=== PATIENT | male | born 1960 | race Caucasian/White ===

== ENCOUNTER 2023-08-29 07:45 | Outpatient (CLI) | payer BC | END 2023-08-29 23:59 | disposition home or self-care (01) | LOC: MRI 07:45 | PROVIDERS: ATTEND Chiropractor | DX: M47.22 Other spondylosis with radiculopathy, cervical region (principal); M48.02 Spinal stenosis, cervical region; M50.123 Cervical disc disorder at C6-C7 level with radiculopathy; M99.01 Segmental and somatic dysfunction of cervical region; M60.9 Myositis, unspecified; M99.02 Segmental and somatic dysfunction of thoracic region; M99.03 Segmental and somatic dysfunction of lumbar region; M99.04 Segmental and somatic dysfunction of sacral region; M99.05 Segmental and somatic dysfunction of pelvic region | CPT/HCPCS: 72141 ==

== ENCOUNTER 2023-10-07 13:36 | Emergency (ER) | payer BC | END 2023-10-07 13:51 | disposition left against medical advice (07) | LOC: ER 13:36 | DX: M79.603 Pain in arm, unspecified (principal); Z53.21 Procedure and treatment not carried out due to patient leaving prior to being seen by health care provider ==

== ENCOUNTER 2025-01-08 14:14 | Inpatient (IN) | payer BC ==
[~2025-01-08] VITALS: Ht 182.9 cm; Wt 84.1 kg
[2025-01-08 14:51] LABS: MEAN PLATELET VOLUME 7.6 FL (7.4-10.4); RED CELL DISTRIBUTION WIDTH 16.8 % (11.5-14.5)
[2025-01-08 14:52] LABS: LEUKOCYTE ESTERASE ,URINE NEGATIVE (Neg); NITRITES, URINE NEGATIVE (Neg); OCCULT BLOOD,URINE TRACE-INTACT (Neg)
[2025-01-08 14:55] LABS: UA COLLECTION TYPE CLN CATCH MIDSTREAM
[2025-01-08 14:56] LABS: MUCUS STRANDS NONE SEEN /LPF (Neg); SQUAMOUS EPITHELIAL CELL,UR NONE SEEN /LPF (FEW)
[2025-01-08 15:07] LABS: CREATININE 0.80 MG/DL (0.60-1.10); TOTAL CARBON DIOXIDE 28.5 MMOL/L (24-32); eCRCL 102 ML/MIN; eGFR > 90 ML/MIN
[2025-01-08] MEDS: normal saline 1000ML IV soln IVB ONE (15:26)
[2025-01-08] MEDS: morphine 4 MG/ML inj SYRINge IV ONE ×2 (15:27→17:09)
--- NOTE | 2025-01-08 16:06 | Physician Documentation ---
History of Present Illness ~ Chief Complaint: Flank Pain Stated Complaint: KIDNEY PAIN Time Seen by MD: 15:01 OK to notify your PCP?: Yes Source: patient Mode of Arrival: POV Exam Limitations: no limitations HPI Patient presents with his secondary to lower back pain starting about one week ago radiating to the groin. Acutely worse last night. Pain located in his lower back radiating to the groin. When he got up last night he had difficulty and then experienced headache in the base of his neck. History of polymyalgia rheumatica on prednisone and Meniere's disease. He has also had a C-spine fusion. Complaining of nausea, no vomiting, no diarrhea. No fevers or chills. States has history of kidney stone and this feels similar to previous. Medication Reconciliation Allergies: Coded Allergies: No Known Allergies (Unverified , 01/08/25) Scheduled Prednisone* (Prednisone*), 3 TAB PO DAILY, (Reported) [Betahistine], 16 MG PO TID, (Reported) Past Medical History Past Medical History: *MEDICAID BILLER* (Polymyalgia rheumatica, Meniere's disease), Kidney Stones Past Surgical History: other (c-spine) Smoking Status: Never smoker Alcohol Use: None Drug Use: none Lives with: Spouse Lives In: Home Review of Systems All Other Systems at this time: Reviewed and Negative ROS As stated above in the HPI, otherwise all systems are reviewed and negative. Physical Exam Vital Signs: RN Vital Signs have been reviewed: Yes, Temperature: 97.3, Source: Oral, Heart Rate: 59, Respiratory Rate: 18, BP: 161/92, Pulse Oximetry: 100, Weight: 84.090 Oxygen Flow Rate: 0 Pulse Oximetry Reflects: adequate oxygenation Physical Exam General: Awake, alert, oriented. No apparent distress Respiratory: Lungs are clear to auscultation bilaterally. No respiratory distress. Chest: Normal shape and size. No accessory muscle use. Cardiovascular: Regular rate and rhythm. S1-S2. No murmur, gallop, rub. Gastrointestinal: Abdomen is soft. Nontender to palpation. Bowel sounds present. Extremities: No lower extremity edema, cyanosis or clubbing. Neurologic: Alert and oriented x4. Moving all extremities. Patellar DTRs plus two. Back: There is no CVA tenderness on exam. Pain with palpation to the left buttock area. Psychiatric: Normal mood and affect. Skin: Normal color. Warm and dry. Progress Progress Note 175: Patient had continued to complain of pain in the left gluteal area radiating to his groin on the left. Was given 4 mg addition of morphine. Continues to have pain. CT results were reviewed with him. States that two days ago he was doing some heavy lifting. Pain worse with movement. Has a headache posterior skull as well that is still present. We will give Toradol and Flexeril. 1906: Patient unable to stand. Continued pain in the left gluteal pain. Discussed with sup physician. Recommended IV muscle relaxer, therefore order for Valium. POC reviewed with pt and . At this time given no acute neurologic emergency. Signed out to supervising physician, Dr. Lao. Results/Orders Results/Orders Orders - EDITH BERNAL LICENSED SALES ASSISTANT Ct Abdomen Pelvis (01/08/25 16:19) * Bladder Scan / Post Residual (01/08/25 17:32) Completed Orders - EDITH BERNAL LICENSED SALES ASSISTANT Ct Abdomen Pelvis (01/08/25 16:19) Normal Saline 1000ml (0.9% Sodium Chlori (01/08/25 15:10) Morphine 4mg/Ml Inj. (Morphine Inj.) (01/08/25 15:10) Morphine 4mg/Ml Inj. (Morphine Inj.) (01/08/25 17:05) Ketorolac Trometh 15mg/Ml Vial (Toradol (01/08/25 17:55) Cyclobenzaprine Tablet (Flexeril Tablet) (01/08/25 17:55) Diazepam Inj (Valium Inj) (01/08/25 19:05) Medications Received in ER Medications (Trade) Dose Ordered Sig/Elo Route PRN Reason Start Time Stop Time Status Last Admin Dose Admin (morphine inj.) 2 mg ONCE ONCE IV 01/08/25 15:10 01/08/25 15:14 DC 01/08/25 15:27 2 MG (0.9% sodium chloride (NS) 1000ml IV soln) 1,000 ml ONCE ONCE IVB 01/08/25 15:10 01/08/25 15:14 DC 01/08/25 15:26 1,000 ML (morphine inj.) 4 mg ONCE ONCE IV 01/08/25 17:05 01/08/25 17:13 DC 01/08/25 17:09 4 MG (Toradol injection) 15 mg ONCE ONCE IV 01/08/25 17:55 01/08/25 17:56 DC 01/08/25 18:09 15 MG (Flexeril tablet) 10 mg ONCE ONCE PO 01/08/25 17:55 01/08/25 17:56 DC 01/08/25 18:08 10 MG (Valium inj) 5 mg ONCE ONCE IV 01/08/25 19:05 01/08/25 19:06 DC 01/08/25 19:12 5 MG Vital Signs 01/08/25 01/08/25 01/08/25 01/08/25 14:19 14:49 16:26 18:06 Temp 97.3 Pulse 59 57 50 Resp 18 19 20 B/P (MAP) 161/92 138/84 (102) 131/74 (93) Pulse Ox 100 99 97 O2 Flow Rate 0 0 0 01/08/25 01/08/25 01/08/25 01/08/25 18:36 18:45 19:12 19:50 Pulse 53 43 Resp 16 16 16 13 B/P (MAP) 131/74 (93) 141/75 (97) Pulse Ox 100 99 O2 Flow Rate 0 0 01/08/25 20:09 Resp 14 Laboratory Tests Test 01/08/25 14:31 01/08/25 14:45 Urine Specimen Description Cln catch midstream Urine Color Yellow Urine Clarity Clear Urine pH 6.5 Urine Specific [place] 1.010 Urine Protein Negative Urine Glucose (UA) Negative Urine Ketones Negative Urine Occult Blood Trace-intact Urine Nitrite Negative Urine Bilirubin Negative Urine Urobilinogen 0.2 Urine Leukocyte Esterase Negative Urine RBC 3-10 Urine WBC None seen Urine Squamous Epithelial Cells None seen Urine Bacteria None seen Urine Mucus None seen Urine Culture Indicated Not ind Volume Urine Centrifuged 10 ml Urine Comment White Blood Count 7.5 Red Blood Count 5.18 Hemoglobin 15.4 Hematocrit 45.8 Mean Corpuscular Volume 88.5 Mean Corpuscular Hemoglobin 29.7 Mean Corpuscular Hemoglobin Concent 33.5 Red Cell Distribution Width 16.8 H Platelet Count 262 Mean Platelet Volume 7.6 Neutrophils (%) (Auto) 78.9 H Lymphocytes (%) (Auto) 15.0 L Monocytes (%) (Auto) 4.6 Eosinophils (%) (Auto) 1.0 Basophils (%) (Auto) 0.5 Neutrophils # (Auto) 5.9 Lymphocytes # (Auto) 1.1 Monocytes # (Auto) 0.3 Eosinophils # (Auto) 0.1 Basophils # (Auto) 0.0 CBC Comment Sodium Level 137 Potassium Level 4.2 Chloride Level 105 Carbon Dioxide Level 28.5 Anion Gap 4 L Blood Urea Nitrogen 13 Creatinine 0.80 Estimated GFR/1.73 m2 > 90 BUN/Creatinine Ratio 16.3 Glucose Level 124 H Calcium Level 8.6 Total Bilirubin 0.6 Aspartate Amino Transf (AST/SGOT) 17 Alanine Aminotransferase (ALT/SGPT) 26 Alkaline Phosphatase 74 Total Creatine Kinase 80 Total Protein 7.6 Albumin 3.8 Globulin 3.8 Albumin/Globulin Ratio 1.0 L Lipase 26 Chemistry Comments Medical Decision Making Findings Patient initially presented with c/o flank pain on the left radiating to the groin. Concern for kidney stone. Has hx of a kidney stone many years ago. Underwent CT to r/o stone. There was a right stone in the Nonobstructive right renal caliceal stone that is non-obstructive. There is no hydronephrosis. There was noted to have bladder distention. Was able to urinate. Nursing did post residual void 450 mL. His pain is localized to the left gluteal area with radiation to the groin. Given post residual void and unable to ambulate needs MRI to r/o neruo condition such as cauda equina or other neurology condition. Discussed with Dr. Lao. Recommends admit for MRI. His pain is more located in the left buttock. He was unable to ambulate 2/2 his pain. He received a total of 6 mg of morphine, Toradol and Flexeril with the continued pain and unable to ambulate. Therefore given Valium. Has continued pain. therefore, admited as inpatient for further eval. The case was discussed with the attending physician, Shilo. The plan of care, diagnostic evaluation and medical decision making were discussed. The attending physician was available for consultation, where the diagnostic findings as well as the eventual disposition. Case signed out to residents service. Departure Time of Disposition: 19:55 Disposition: 09 ADMITTED INPATIENT Admission Level of Care: Neuro Impression: Primary Impression: Renal stone Additional Impressions: Lower back pain Qualified Codes: M54.50 - Low back pain, unspecified Weakness Urinary retention Condition: Guarded Referrals: NO PRIMARY CARE PROVIDER (PCP) Signature Scribe Signature: No scribe Attestation: The note accurately reflects work and decisions made by me.Edith Hernandez NP 01/08/25 20:04 This note was created with the assistance of voice recognition software whereby errors in grammar, syntax, and/or spelling may have occurred despite active proofreading efforts by the author. Please do not hesitate to contact the provider for clarification or for questions regarding the content of this document. EDITH BERNAL NP Jan 08, 2025 16:06
--- NOTE | 2025-01-08 17:12 | RADIOLOGY REPORT ---
EXAM: CT CT ABDOMEN PELVIS HISTORY: pelvic pain hx of kidney stone. r/o stone TECHNIQUE: Volumetric multidetector CT images of the abdomen and pelvis were obtained after the administration of intravenous contrast. All CT scans at this facility use dose modulation, iterative reconstruction, and/or weight based dosing when appropriate to reduce radiation dose to as low as reasonably achievable. COMPARISON: None FINDINGS: [LOWER CHEST]: Inconspicuous subpleural predominant ground-glass in the right lower lobe. Coronary artery calcifications. Small indeterminate hypoattenuating possible cyst measuring 2.8 x 1.8 cm. Differential for pericardial cyst [LIVER]: Normal hepatic size without suspicious focal lesion. [GALLBLADDER AND BILIARY TREE]: No cholelithiasis. [SPLEEN]: Unremarkable. [PANCREAS]: Unremarkable. [ADRENAL GLANDS]: Unremarkable [KIDNEYS]: No hydronephrosis. Large nonobstructive right renal caliceal stone, 10 mm. No distal ureteral stone. No suspicious focal lesion. [BLADDER]: Bladder distention [REPRODUCTIVE ORGANS]: Mild prostatomegaly [BOWEL/MESENTERY]: Stomach is normal. No CT evidence of bowel obstruction. mild distal descending and proximal sigmoid colonic diverticulosis . [ASCITES]: Absent [LYMPHADENOPATHY]: No pathologically enlarged lymph nodes by CT size criteria [VASCULATURE]: No aneurysmal dilatation. [ABDOMINAL WALL]: Infiltration along bilateral inguinal canals [MUSCULOSKELETAL]: No acute fracture or aggressive focal osseous lesion. Multifocal degenerative change of the visualized spine. possible prior avulsive injury along the origin of the right gluteus medius muscle belly along the right iliac wing IMPRESSION: 1. No CT evidence of an acute abdominal/pelvic process. 2. Nonobstructive right renal caliceal stone. 3. Mild prostatomegaly with bladder distention correlate for outlet obstruction versus urinary retention 4. Mild distal descending and proximal sigmoid colonic diverticulosis.
[2025-01-08] MEDS: ketorolac trometh 15mg/ml vial 15 MG/ML ML IV ONE (18:09)
[2025-01-08] MEDS: diazepam inj 5 MG/ML inj. IV ONE (19:12)
[2025-01-08] MEDS ORDERED: BETAHISTINE PO (20:08)
[2025-01-08] MEDS ORDERED: PRED5TAB PO (20:08)
[2025-01-08] MEDS ORDERED: magnesium sulf-water 4G/100mL 100 ML IV PRN (20:20)
[2025-01-08] MEDS ORDERED: magnesium sulf-water 2g/50mL 50 ML IV PRN (20:20)
[2025-01-08] MEDS ORDERED: magnesium Cl slow-release 64mg tablet PO PRN (20:20)
[2025-01-08] MEDS ORDERED: potassium Cl 40MEQ/1/2NS 520ml 520 ML IV PRN (20:20)
[2025-01-08] MEDS ORDERED: mag hydrox/Alum hydrox/simeth 30ml oral suspension PO PRN (20:20)
[2025-01-08] MEDS ORDERED: potassium Cl 20 mEq SR tablet PO PRN ×2 (20:20)
[2025-01-08] MEDS ORDERED: magnesium hydroxide 30ml (MOM) UD suspension PO PRN (20:20)
--- NOTE | 2025-01-08 21:14 | HISTORY AND PHYSICAL-Residence ---
History & Physical Providers to CC Resident Creating Document: CHAS TEJEDA, RES ~ History of Present Illness Reason for Admit\Complaint: gluteal pain History of Present Illness 64 years old male with past medical history of polymyalgia rheumatic and Meniere's disease comes to ED with severe 10/10 pain in left gluteal region, which is sharp and radiating to back and left groin the pain increases when he stands or moves around in the bed, and decreased when he stays still. Patient reported having mild back pain since 1 week, last he lifted a heavy box after which patient condition got exacerbated to a point he has unable to walk due to pain. Patient denies any bowel and bladder incontinence, Denies any loss of sensation in gluteal region The patient currently reports 5/10 pain. Patient mentioned having polymyalgia rheumatica for which he takes prednisone 10 mg daily Patient denies any hematuria, dysuria, oliguria but in ED his postvoid residual urine volume is 450 mL Patient reports headache but denies any fever, chest, palpitation, dizziness, any motor or sensory defect in extremities. Patient has a history of renal calculi which was treated in 10 years ago In ED given Valium, cyclobenzaprine, ketorolac, morphine because Patient unable to stand. Continued pain in the left gluteal pain Allergies: Coded Allergies: No Known Allergies (Unverified , 01/08/25) Home Medications Home Medications Active Reported [Betahistine] 16 Mg PO TID Prednisone* (Prednisone) 5 Mg Tablet 3 Tab PO DAILY Past Medical History Past Medical History Polymyalgia rheumatica Meniere's disease Past Surgical History Surgical History Comment Right meniscal tear surgery Biceps tendon repair Lower back surgery C4-C5 C6 fusion in July 2024 Past Social History Social History Comment Patient lives in his home He is able to ambulate in house without any assistance He smoked 1-2 cigars daily since 10 years He drinks 1-2 pints of beer daily He he does not smoke marijuana, he is not a drug user His PCP- [place] (ROBERT) Alcohol Use: None Drug Use: None Lives with: Spouse Lives In: Home ROS All Other Systems: Reviewed and Negative ROS Constitutional: No fever, chills, dizziness, weakness, Eyes: No pain, erythema, discharge, blurring of vision ENT: No sore throat, epistaxis, tinnitus Cardiovascular: No chest pain, No current palpitations, syncope, lower extremity edema, paroxysmal nocturnal dyspnea Respiratory: No shortness of breath , No cough, hemoptysis Gastrointestinal: No decrease appetite , No Nausea, vomiting,diarrhea and abdominal pain. Genitourinary: No frequency,urgency,No nocturia, hematuria or dysuria Musculoskeletal: Patient report 10/10 pain in left gluteal region which radiates to back and groin Integumentary: No change in skin, hair, nails. No swelling, bruising, abrasions Neurologic: patient didnot report any symptoms Psychiatric: No delusions, loss of interest in normal activity or change in sleep pattern, hallucinations, suicidal ideations Endocrine: No fatigue, weakness, polydipsia, polyuria, change in appetite, heat or cold intolerance, sweating, dry skin Hematological: No bleeding, petechiae, noted some bruises on left hand Allergies: No asthma or urticaria Exam Vitals: Vital Signs Date Time Temp Pulse Resp B/P (MAP) Pulse Ox O2 Delivery O2 Flow Rate FiO2 01/08/25 20:30 54 15 140/79 (99) 100 0 01/08/25 14:19 97.3 General: Patient is,alert, orientedx4 , answering questions with normal speech HEENT: Normocephalic and atraumatic, Oral and nasal mucosa is moist. No visible head injuries Neck: Trachea is in midline. No masses or JVD Chest: Normal air movement bilaterally , Bilateral normal breath sounds. No crackles, rhonchi or wheezes Cardiovascular: Regular rate and regular rhythm. S1-S2 normal. No rubs or murmurs Abdomen: Patient presented with left gluteal pain radiates to back and groin, patient did not report any changes in pain when palpating the area Non distented ,Normoactive bowel sounds Extremities: No cyanosis, clubbing or edema, No deformities, peripheral pulses 2+ WET WASH ASSEMBLER: Patient is alert , awake, speech is clear CN II-XII - intact Normal Tone and Bulk in all extremities Sensation is intact in all extremities Co-ordination is intact Skin: warn and dry Diagnostic Data Last Recorded Lab Results: 01/08/25 1445 01/08/25 1445 Advance Care Planning Advanced Care plannin - 30 Minutes Additional Plan 64 years old male with past medical history polymyalgia rheumatica and Meniere's disease he is currently evaluated for abdominal pain Severe radicular pain Patient presents with 10/10 left gluteal pain that radiates to back and groin and patient is unable to walk due to pain after lifting heavy object Differential include Lumbosacral radiculopathy Lumbar strain Obstructing renal calculi ruled out BP-140/79, Pr-54, SpO2-100 H&H-15.4/45.8, WBC-7.5 UA-negative Lipase-26 Na-137, K-4.2, BUN 13, creatinine-0.80, EGFR more than 90, BUN:Cr-16.3 CT: No CT evidence of an acute abdominal/pelvic process. Nonobstructive right renal caliceal stone.Mild prostatomegaly with bladder distention correlate for outlet obstruction versus urinary retention.Mild distal descending and proximal sigmoid colonic diverticulosis Plan Patient was given 1 dose of cyclobenzaprine, Valium, morphine in the ED Continue on cyclobenzaprine 10 mg p.o. daily Pain control with ketorolac/ morphine p.r.n. Started gabapentin 300 mg p.o. daily Follow-up with PSA Follow-up with ESR/CRP/procalcitonin/MG follow-up with MRI of lumbar spine Polymyalgia rheumatica Patient has a history of polymyalgia rheumatica for which she take home med prednisone 5 mg 3 tablets p.o. daily Plan Continue home med Meniere's disease Patient has a history of Meniere's disease for which he takes betahistine 16 mg p.o. TID Plan Given 1 dose of betahistidine Continue home med 16 mg p.o. TID Code Status: Full DVT prophylaxis: Lovenox Analgesia/Sedation: Morphine/Tylenol Nutrition: Regular diet PT: ordered Disposition: Patient will be monitored in ortho with telemetry, follow up with MRI of lumbar spine Chas Tejeda PGY1-Internal Medicine Resident agree with care and plan admit to medicine Date of Service: Jan 08, 2025 Billing Provider: JANELLE SYLVESTER MD, SATISH, RES Jan 08, 2025 21:14 JANELLE SYLVESTER MD Jan 09, 2025 00:39
[2025-01-08] MEDS: BETAHISTINE 16 MG PO SCH (21:57)
[2025-01-08] MEDS: ondansetron/PF 4mg/2ml inj IV PRN (22:15)
[2025-01-08] MEDS: morphine 4 MG/ML inj SYRINge IV PRN (22:16)
[2025-01-08 22:34] LABS: CHOL/HDL RATIO 3.5 (0.00-4.99); LDL CHOLESTEROL 135 MG/DL (50-100)
[2025-01-09] MEDS ORDERED: ketorolac trometh 15mg/ml vial 15 MG/ML ML IM PRN ×2 (00:50→00:58)
[2025-01-09] MEDS: morphine 4 MG/ML inj SYRINge IV PRN (04:07)
[2025-01-09] MEDS: K and/or MAG REPLACEMENT MC SCH (07:43)
[2025-01-09] MEDS: docusate sod 100mg capsule PO SCH (07:55)
[2025-01-09 08:00] LABS: MEAN PLATELET VOLUME 7.5 FL (7.4-10.4); RED CELL DISTRIBUTION WIDTH 16.6 % (11.5-14.5)
[2025-01-09 08:13] VITALS: BP 171/85; PULSE 55; RESP 14; TEMP 97.6; O2SAT 99
[2025-01-09 08:55] LABS: CREATININE 0.75 MG/DL (0.60-1.10); TOTAL CARBON DIOXIDE 25.3 MMOL/L (24-32); eCRCL 109 ML/MIN; eGFR > 90 ML/MIN
[2025-01-09 10:00] VITALS: BP 150/91; PULSE 55; RESP 18; TEMP 98.5; O2SAT 97
[2025-01-09] MEDS: ketorolac trometh 15mg/ml vial 15 MG/ML ML IV PRN (10:54)
[2025-01-09] MEDS: diazepam inj 5 MG/ML inj. IV ONE (15:45)
--- NOTE | 2025-01-09 17:43 | RADIOLOGY REPORT ---
EXAM: MR MRI LUMBAR SPINE INDICATION: cauda equina TECHNIQUE: Multiplanar, multisequence MR images of the lumbar spine were obtained without the administration of IV contrast. COMPARISON: None FINDINGS: [ANATOMY]: Five lumbar-type vertebral bodies are present. The most inferior well-formed disc space will be referred to as L5-S1 for purposes of numbering in this report. [VERTEBRAL BODIES]: The vertebral bodies are normal in height, alignment, and marrow signal. [SPINAL CANAL]: The conus medullaris is normal in signal and morphology, terminating at the L1-L2 level. Multilevel effacement lateral recesses primarily secondary to facet arthropathy and superimposed disc bulges at L2-3, L3-4 [FACETS]: [id number] bilateral multilevel facet arthropathy [OTHER]: Benign cysts of the left kidney. LEVEL BY LEVEL DISCUSSION: [T12-L1]: Unremarkable. [L1-L2]: Minimal posterior epidural lipomatosis. Trace circumferential disc bulge with 2-3 mm bilateral inferior foraminal extension mild bilateral facet arthropathy. Fuqt-xn-yslksjce left and mild right foraminal narrowing [L2-L3]: Broad-based posterior disc protrusion measuring 3 mm. Mild bilateral facet arthropathy, [id number]-left. Moderate to severe right and mild to moderate left foraminal narrowing [L3-L4]: Effacement of the lateral recesses trace circumferential disc bulge. 3 mm posterior extension. Facet arthropathy. Moderate to severe bilateral foraminal narrowing [L4-L5]: 2-3 mm bilateral inferior foraminal protrusions. Mild left facet arthropathy. Severe left and mild right foraminal narrowing. [L5-S1]: Unremarkable. IMPRESSION: 1. No acute fracture or subluxation. 2. No significant central canal or foraminal narrowing.
[2025-01-09 18:00] VITALS: BP 124/78; PULSE 59; RESP 16; TEMP 99.7; O2SAT 98
[2025-01-09] MEDS: nortriptyline 10mg capsule PO SCH (20:24)
[2025-01-09] MEDS: enoxaparin 40mg/0.4ml syringe SQ SCH (20:29)
--- NOTE | 2025-01-09 21:47 | PROGRESS NOTE ---
Daily Progress Note Providers to CC ~ Antibiotic Timeout Antibiotic Ordered?: Yes Subjective The patient continues to have severe left gluteal pain starting from his low- back he does have mild hair loss in the lower extremities as well distally. The patient is on tizanidine as needed and I added low-dose 10 mg of nortriptyline at night Objective Vital Signs Date Time Temp Pulse Resp B/P (MAP) Pulse Ox O2 Delivery O2 Flow Rate FiO2 01/09/25 18:30 56 01/09/25 18:00 99.7 16 124/78 (93) 98 Room Air 01/09/25 09:55 0.0 Result Diagram: 01/09/25 0736 01/09/25 0736 Gen. No acute distress alert and oriented 4 Lungs clear to ascultation bilaterally, no wheezes rales or rhonchi appreciated Heart normal sinus rhythm no murmurs rubs or clicks noted Abdomen soft nontender bowel sounds are normoactive Lower extremities no clubbing cyanosis, nor edema appreciated bilaterally Problem\Assessment\Plan Problems/Diagnosis: (1) Lower back pain # deep left gluteal pain- MRI of the lumbar spine demonstrated the following findings: [T12-L1]: Unremarkable. [L1-L2]: Minimal posterior epidural lipomatosis. Trace circumferential disc bulge with 2-3 mm bilateral inferior foraminal extension mild bilateral facet arthropathy. [id number]-[id number] left and mild right foraminal narrowing [L2-L3]: Broad-based posterior disc protrusion measuring 3 mm. Mild bilateral facet arthropathy, yhizl-flnqvtu-nrdu-left. Moderate to severe right and mild to moderate left foraminal narrowing [L3-L4]: Effacement of the lateral recesses trace circumferential disc bulge. 3 mm posterior extension. Facet arthropathy. Moderate to severe bilateral foraminal narrowing [L4-L5]: 2-3 mm bilateral inferior foraminal protrusions. Mild left facet arthropathy. Severe left and mild right foraminal narrowing. [L5-S1]: Unremarkable. Possible cause of the patient's deep gluteal pain however this burning sensation can also be secondary to peripheral artery disease- has a ordered a CTA of the abdomen with lower extremity runoff and a arterial ultrasound with ABIs # polymyalgia rheumatica His you home prednisone dose # Meniere's disease Continue beta histamine as needed Date of Service: Jan 09, 2025 Billing Provider: ROBACK,AMELIA T DO Common Visit Codes: 62245-[id number] INP/OBS CARE(HIGH) Problem Qualifiers (1) Lower back pain: Qualified Codes: M54.50 - Low back pain, unspecified AMELIA MCKEON DO Jan 09, 2025 21:47
[2025-01-09 22:00] VITALS: BP 118/77; PULSE 58; RESP 16; TEMP 97.8; O2SAT 94
[2025-01-10 05:44] LABS: MEAN PLATELET VOLUME 7.1 FL (7.4-10.4); RED CELL DISTRIBUTION WIDTH 16.6 % (11.5-14.5)
[2025-01-10 06:00] VITALS: BP 109/79; PULSE 55; RESP 18; TEMP 97.4; O2SAT 99
[2025-01-10 06:05] LABS: CREATININE 0.93 MG/DL (0.60-1.10); TOTAL CARBON DIOXIDE 26.8 MMOL/L (24-32); eCRCL 88 ML/MIN; eGFR 82 ML/MIN
[2025-01-10] MEDS ORDERED: iohexol 350 MG/ML 50ML vial IV ONE (09:22)
[2025-01-10 10:00] VITALS: BP 115/76; PULSE 56; RESP 16; TEMP 98.3; O2SAT 95
--- NOTE | 2025-01-10 10:03 | VASCULAR REPORT ---
Ankle Brachial Index - Single Level Date: 01/10/2025 08:17 AM Clinical History: Bilateral lower extremity pain Comparison: VASC VL ARTERIAL on DOS: 01/10/25, CT CTA ABDOMEN LOWER EXTR RUNOFF on DOS: 01/09/25 Indeations Bilateral lower extremity pain Pressures/Indices Right CARLOS Left AB Brachial IVmmHg Brachial 136mmHg Ankle(PT) 158mmHg Ankle(PT) 168mmHg Ankle(DP) 162mmHg Ankle(DP) 168mmHg CONCLUSION 2. Right ankle-brachial index: 1.19, suggesting no disease at rest. 3. Left ankle-brachial index: 1.23, suggesting no disease at rest. 4. Unable to calculate right brachial pressure due to IV in the right upper extremity.
--- NOTE | 2025-01-10 10:05 | VASCULAR REPORT ---
BILATERAL Lower Extremity Arterial Duplex Date: 01/10/2025 07:57 AM Clinical History: Lower extremity pain Comparison: VASC VL CARLOS on DOS: 01/10/25, CT CTA ABDOMEN LOWER EXTR RUNOFF on DOS: 01/09/25 Technique: Duplex Doppler evaluation including color Doppler and spectral/pulsed waveform analysis of the lower extremity arteries was performed. VELOCITY AND DOPPLER WAVEFORM ANALYSIS RIGHT cm/se Waveform Severity LEFT cm/se Waveform Severity c c dCFA 94.3 Multiphasic dCFA 88.7 Multiphasic Prof Fem 54.7 Multiphasic Prof Fem 47.9 Multiphasic Art. Art Fem Art 101.5 Multiphasic Fem Art 129.9 Multiphasic Prox. Prox. Fem Art 91.9 Multiphasic Fem Art 94.8 Multiphasic Mid Mid. Fem Art 87.9 Multiphasic Fem Art 69.0 Multiphasic Dist. Dist. Pop Art(AK) 52.4 Multiphasic Pop Art(AK) 59.2 Multiphasic Pop Art(BK) 75.6 Multiphasic Pop Art(BK) 55.5 Multiphasic DOCUMENT REVIEW ATTORNEY Dist. 44.6 Multiphasic DOCUMENT REVIEW ATTORNEY Dist. 67.1 Multiphasic Per Art Dist. 62.1 Multiphasic Per Art Dist. 64.6 Multiphasic CASSIDY Dist. 79.5 Multiphasic CASSIDY Dist. 87.1 Multiphasic CONCLUSION Imaging reveals patent arteries bilaterally. No evidence of significant stenosis and/or occlusion bilaterally. Multiphasic flow at all levels bilaterally.
[2025-01-10 12:57] LABS: LEUKOCYTE ESTERASE ,URINE NEGATIVE (Neg); NITRITES, URINE NEGATIVE (Neg); OCCULT BLOOD,URINE TRACE-INTACT (Neg)
[2025-01-10 12:58] LABS: UA COLLECTION TYPE CLN CATCH MIDSTREAM
[2025-01-10 13:02] LABS: SQUAMOUS EPITHELIAL CELL,UR FEW /LPF (FEW)
--- NOTE | 2025-01-10 14:54 | RADIOLOGY REPORT ---
CLINICAL INFORMATION: Pain. TECHNIQUE: Axial CTA imaging of the abdominal aorta and bilateral lower extremities was performed after the uneventful administration of 140 mL Omnipaque 350 IV contrast. Images were obtained from near the level of the aortic arch through both lower extremities. Coronal and sagittal reformatted images were obtained. Volume rendered 3-D reconstructed images of the arterial vasculature were constructed at an independent workstation with concurrent physician supervision. One or more of the following dose reduction techniques were used: Automated exposure control. Adjustment of mA and/or kV according to patient size. CTDIvol = 9.15, 4.36, 13.58, 0.14 mGy DLP = 1778.46 mGy-cm COMPARISON: VASC VL ARTERIAL on DOS: 01/10/25, CT CT ABDOMEN PELVIS on DOS: 01/08/25 FINDINGS: Visualized portions of the thoracic aorta demonstrate no evidence of thoracic aortic aneurysm or dissection. There is no abdominal aortic aneurysm or dissection. Origins of the celiac artery, SMA, bilateral renal arteries, and CINTHIA are patent. There is scattered moderate atherosclerotic calcification. The bilateral common iliac arteries and internal and external iliac arteries are patent. In the right lower extremity, the right common femoral, superficial and deep femoral arteries, and popliteal artery are patent. There is no contrast visualized in the right anterior tibial, posterior tibial, or peroneal arteries throughout most of the right foot, appears to be due to the timing of contrast, with similar findings seen in the contralateral left lower leg as described below. In the left lower extremity, the common femoral, superficial and deep femoral, and popliteal arteries are patent. There is flow in the proximal left anterior tibial artery and tibioperoneal trunk, with no flow seen more distally in the left lower leg, likely due to the timing of contrast. There are scattered areas of subsegmental atelectasis in the visualized portions of the lungs. No focal consolidation or pleural effusion visualized. There is hepatic steatosis. No calcified gallstones visualized in the gallbladder. The spleen, pancreas, and adrenal glands appear grossly unremarkable for the arterial phase of contrast. Nonobstructing right renal calculus measures up to 0.8 cm. Small cysts are seen in the left kidney. No hydronephrosis. No retroperitoneal lymphadenopathy. No small bowel obstruction. There are scattered colonic diverticula without adjacent inflammatory changes to suggest diverticulitis. No free air or free fluid. Prostate is mildly enlarged. Bladder appears unremarkable. There are small fat containing indirect inguinal hernias bilaterally. No acute or suspicious osseous abnormality identified. IMPRESSION: 1. No flow visualized throughout most of the bilateral lower legs, likely due to the timing of contrast. 2. Common femoral, superficial and deep femoral, and popliteal arteries are widely patent bilaterally. 3. No abdominal aortic aneurysm or dissection. Visualized portions of the thoracic aorta demonstrate no evidence for thoracic aortic aneurysm or dissection. 4. Additional nonacute findings as detailed above.
[2025-01-10] MEDS ORDERED: TIZA-205 PO (17:54)
[2025-01-10] MEDS ORDERED: NORT10CA2 PO (17:54)
[2025-01-10] MEDS ORDERED: HYDR-3965 PO (17:54)
--- NOTE | 2025-01-11 00:27 | DISCHARGE SUMMARY ---
Discharge Summary Providers to CC ~ Discharge Summary Admission Diagnosis: ABDOMINAL PAIN Hospital Course DATE OF ADMISSION: 01/08/2025 DATE OF DISCHARGE: 01/10/2025 Discharge Diagnosis\\Comment: Deep left gluteal pain, polymyalgia rheumatica, Meniere's disease Operations\\Procedures: None Consultants: None Complications: None Condition on DC: Stable New Medications: Hydrocodone Bit/Acetaminophen 5/325 MG ([place] 5/325 MG) 5 Mg/325 Mg Tablet 1 TAB PO Q6H PRN for severe pain (7-10), #14 TAB Nortriptyline Hcl (Nortriptyline Hcl) 10 Mg Capsule 10 MG PO HS, #30 CAP Tizanidine Hcl (Zanaflex) 4 Mg Tablet 4 MG PO Q6H PRN for muscle spasms, #30 TAB Continued Medications: [Betahistine] () 16 MG PO TID Prednisone* (Prednisone*) 5 Mg Tablet 3 TAB PO DAILY, TAB Discharge Summary: The patient was admitted by resident physician CHAS Reyez under the supervision of JANELLE Chapa MD with the following HPI:"64 years old male with past medical history of polymyalgia rheumatic and Meniere's disease comes to ED with severe 10/10 pain in left gluteal region, which is sharp and radiating to back and left groin the pain increases when he stands or moves around in the bed, and decreased when he stays still. Patient reported having mild back pain since 1 week, last he lifted a heavy box after which patient condition got exacerbated to a point he has unable to walk due to pain. Patient denies any bowel and bladder incontinence, Denies any loss of sensation in gluteal region The patient currently reports 5/10 pain. Patient mentioned having polymyalgia rheumatica for which he takes prednisone 10 mg daily Patient denies any hematuria, dysuria, oliguria but in ED his postvoid residual urine volume is 450 mL Patient reports headache but denies any fever, chest, palpitation, dizziness, any motor or sensory defect in extremities. Patient has a history of renal calculi which was treated in 10 years ago In ED given Valium, cyclobenzaprine, ketorolac, morphine because Patient unable to stand. Continued pain in the left gluteal pain" MRI of the lumbar spine was obtained with the following findings [SPINAL CANAL]: The conus medullaris is normal in signal and morphology, terminating at the L1-L2 level. Multilevel effacement lateral recesses primarily secondary to facet arthropathy and superimposed disc bulges at L2-3, L3-4 [FACETS]: [id number] bilateral multilevel facet arthropathy [OTHER]: Benign cysts of the left kidney. LEVEL BY LEVEL DISCUSSION: [T12-L1]: Unremarkable. [L1-L2]: Minimal posterior epidural lipomatosis. Trace circumferential disc bulge with 2-3 mm bilateral inferior foraminal extension mild bilateral facet arthropathy. [id number] left and mild right foraminal narrowing [L2-L3]: Broad-based posterior disc protrusion measuring 3 mm. Mild bilateral facet arthropathy, [id number]-left. Moderate to severe right and mild to moderate left foraminal narrowing [L3-L4]: Effacement of the lateral recesses trace circumferential disc bulge. 3 mm posterior extension. Facet arthropathy. Moderate to severe bilateral foramin al narrowing [L4-L5]: 2-3 mm bilateral inferior foraminal protrusions. Mild left facet arthropathy. Severe left and mild right foraminal narrowing. [L5-S1]: Unremarkable. Which the MRI did not explain the patient has neuropathy An arterial ultrasound demonstrated patent arteries in the lower extremities bilaterally And ABIs were normal bilaterally CT scan of the abdominal aortic with lower extremity runoff was negative for any stenosis The patient did have a right-sided kidney stone of 7 mL that was non obstructive. His right hip pain is possibly secondary to a flare-up of polymyalgia rheumatica Gen. No acute distress alert and oriented 4 Lungs clear to ascultation bilaterally, no wheezes rales or rhonchi appreciated Heart normal sinus rhythm no murmurs rubs or clicks noted Abdomen soft nontender bowel sounds are normoactive Lower extremities no clubbing cyanosis, nor edema appreciated bilaterally The patient felt ready to be discharged and was medically cleared to be discharged on 01/10/2025 The patient was seen and evaluated on day of discharge. Time spent on discharge 35 minutes *Problems/Diagnosis: (1) Lower back pain Status: Acute Total Time Spent on D/C: > 30 Minutes Date of Service: Jan 10, 2025 Billing Provider: AMELIA MCKEON DO Common Visit Codes: 59268-DCA/OBS DISCH DAY >30min Problem Qualifiers (1) Lower back pain: Qualified Codes: M54.50 - Low back pain, unspecified AMELIA MCKEON DO Jan 11, 2025 00:26
== END 2025-01-10 19:30 | disposition home or self-care (01) | DRG 552 ==
LOC: ER 14:15 → ED HOLD 20:28 → EDBEDREQ 01-09 01:19 → ORTHO 4S 01-09 07:23
PROVIDERS: ADMIT Internal Medicine; ATTEND Family Medicine
PROC: BW211ZZ Computerized Tomography (CT Scan) of Abdomen and Pelvis using Low Osmolar Contrast (ICD-10-PCS; principal; 2025-01-08)
PROC: B4201ZZ Computerized Tomography (CT Scan) of Abdominal Aorta using Low Osmolar Contrast (ICD-10-PCS; 2025-01-10)
PROC: B42H1ZZ Computerized Tomography (CT Scan) of Bilateral Lower Extremity Arteries using Low Osmolar Contrast (ICD-10-PCS; 2025-01-10)
DX: M54.50 Low back pain, unspecified (principal); M35.3 Polymyalgia rheumatica; N28.1 Cyst of kidney, acquired; H81.03 Meniere's disease, bilateral
CPT/HCPCS: 36415; 72148; 74176; 75635; 80053; 80061; 81001; 82550; 83036; 83690; 83735; 84145; 84153; 85025; 85651; 86140; 87081; 93922; 93925; 96374; 96375; 96376; 97116; 97161; 97530; 99285; G0378; J1650; J1885; J2270; J2405; J3360; J7030; J7512; Q9967